=== PATIENT | female | born 1965 | race Caucasian/White ===

== ENCOUNTER 2016-11-25 17:50 | Emergency (ER) | payer OTHER ==
--- NOTE | 2016-11-25 19:31 | DIAGNOSTIC IMAGING REPORT ---
PROCEDURE: XR CHEST 1 VIEW INDICATION: CHEST PAIN TECHNIQUE: Portable AP view (1920 hours). COMPARISON: Compared to chest x-ray on 08/16/2011. FINDINGS: Lungs are clear. Heart and mediastinum are normal. Thorax is normal. IMPRESSION: 1. Negative chest.
--- NOTE | 2016-11-25 21:21 | ED NURSING NOTES ---
Clinical Report - Nurses [facility] [address] [place] [address] 11/25/2016 17:51 Patient: YOVANNY PARK TRIAGE Triage time 18:28. Acuity: LEVEL 3. Chief Complaint: CHEST PAIN. Alert. No acute distress. --18:37 Tiff Flores R.N. 18:28 11/25/16. BP: 110/75. HR: 71. RR: 18. O2 saturation: 98% on room air. Temp: 97.9 F (oral). Pain level now: 3/10. --18:37 Tiff Flores R.N. Weight: 63.5 kg stated. Height/Length: 64 inches Per Patient. BMI: 24. --18:35 Tiff Flores R.N. Medications Divalproex Sodium Oral. Imitrex Oral. SEROquel Oral. --18:32 Tiff Flores R.N. Medication/allergy information source: the patient. --18:37 Tiff Flores R.N. Allergies Codeine. Possible Vicodin.(vomiting) --18:32 Tiff Flores R.N. History Arrived by private vehicle. Historian: patient. Unaccompanied. Primary physician (Frandy). Describes the quality as aching and (intermittent). Relates location as in the central chest area. Notes pain level as 3/10 on arrival and 7/10 at maximum. Provoking / relieving factors: worsened by movement; relieved by rest. ( states if she thinks about the pain comes back). The patient has had difficulty breathing. No sweating episodes, nausea or vomiting. PAST MEDICAL HX: Last normal menstrual period- Oct 2016. SOCIAL HX: Smoker- current status unknown (no). Occasional alcohol use. No drug use. FALL RISK ASSESSMENT: Fall risk assessment completed. No fall risk identified. FUNCTIONAL ASSESSMENT: Functional assessment: no impairments noted. LEARNING NEEDS ASSESSMENT: The learning needs assessment revealed no barriers. --18:37 Mark, Tiff, R.N. 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 (324 mg). --18:39 Tiff Flores R.N. PROBLEMS: Cellulitis. Bronchitis. Pneumonia. Chronic Headache. Headache. Tension-Type Headache. Migraine Headache. Immunizations. LNMP - Last Normal Menstrual Period. --18:33 Tiff Flores R.N. ADDITIONAL SURGERIES: Appendectomy. Foot. --18:33 Tiff Flores R.N. Assessment GENERAL / NEURO / PSYCH: Alert. Oriented X 4. Appears in no acute distress. Patient appears calm and cooperative. RESPIRATORY: Respirations not labored. SKIN: Skin is warm and dry. --18:37 Tiff Flores R.N. Interventions ID and allergy band on patient. To treatment room. --18:37 Tiff Flores R.N. PHYSICAL ASSESSMENT 19:04 11/25/16. Ambulatory to room. GENERAL / NEURO / PSYCH: Alert. Oriented X 4. Appears in no acute distress. HEENT: Mucous membranes are pink. RESPIRATORY: Respirations not labored. Chest nontender. CVS: Pulses within normal limits. Capillary refill less than 2 seconds. GI / : Abdomen soft. EXTREMITIES: No lower extremity edema. SKIN: Skin is warm and dry. Normal skin turgor. Skin is non-tender. --19:04 Shefali Cope R.N. NURSING PROGRESS NOTES 18:57 EKG done in triage. --18:57 Tiff Flores R.N. EKG time: (185). EKG was performed by a tech and shown to the ED physician. --19:02 [facility] 19:05 11/25/16. The plan of care for this patient includes an assessment with efforts to address impairment of the cardiovascular system. This plan of care was discussed with the patient. cardiac monitor, pulse oximeter and NIBP monitor placed on patient; rn cardiac rehab- Lead II; monitor alarms on. Patient gowned. Two patient identifiers checked. Call light placed in reach. Side rails up x 1. Bed placed in lowest position. Brakes of bed on. --19:05 Shefali Cope R.N. 19:22 11/25/16. Portable chest x-ray performed and shown to the ED physician. --19:29 Shefali Cope R.N. 19:45 11/25/2016 Site #1 started via IV in the left wrist with an 20g angiocath, with aseptic technique and good blood return; one attempt. Blood drawn: rainbow set. Labeled in the presence of the patient and sent to the lab. Saline lock flushed with 10 mL saline. --19:49 Shefali Cope R.N. Oxygen administered at 2 liters (applied). --19:50 Shefali Cope R.N. 19:49 11/25/16. O2 saturation: 89%. --19:50 Shefali Cope R.N. 21:07 11/25/16. The patient is calm. RESPIRATORY: No respiratory distress. Breath sounds normal. CVS: Normal sinus rhythm noted. SKIN: Skin is warm and dry. Skin color within normal limits. Patient waiting for disposition. --21:07 Shefali Cope R.N. 21:07 11/25/16. BP: 110/70. HR: 72. RR: 18. O2 saturation: 100%. Pain level now 0/10. --21:07 Shefali Cope R.N. 21:19 11/25/16. ( Md in room to review findings). --21:19 Shefali Cope R.N. DISPOSITION / DISCHARGE 21:33 11/25/2016 Site #1 removed upon discharge. Catheter intact. Bandaid applied. --21:35 Shefali Cope R.N. 21:36 11/25/16. Condition at departure: improved and stable. The goals identified in the patient's plan of care were met. No learning barriers present. Reviewed medication(s). Reviewed referral to a primary care physician for followup. Patient verbalized understanding. Written instructions provided in [place] Islander. The patient was discharged home and unaccompanied at time of discharge. She left the Emergency Department ambulatory and via private vehicle. Patient driving. FALL RISK ASSESSMENT: Fall risk assessment completed. No fall risk identified. --21:36 Shefali Cope R.N. 21:06 11/25/16. BP: 110/70. HR: 72. RR: 18. O2 saturation: 100%. Pain level now 0/10. --21:36 Shefali Cope R.N. Departure time: 21:36 Nov 25 2016. --21:36 Shefali Cope R.N. Locked/Released at 11/25/2016 21:36 by Shefali Cope R.N.
--- NOTE | 2016-11-25 21:21 | ED ORDER SUMMARY ---
..... Patient: YOVANNY PARK OrderSheet [facility] VisitID: [id number] [place] [address] 51y, F Registration Date/Time: 11/25/2016 ORDER SHEET Weight: 63.5 kg (stated) Allergies: Codeine, Vicodin GENERAL ORDERS: Chest 1V Urgent (19:11/25/2016 Zion MARSHALL) (Ack 19:13 Kassidy ER Dolphin Trainer) (19:40 MCampbell) Fruit Farmer (Continuous) (:11/25/2016 Zion MARSHALL) (19:11 EInderbitzen R.N.) CBC w Diff Urgent (:11/25/2016 Zion MARSHALL) (Ack 19:13 Kassidy ER Dolphin Trainer) (20:19 EInderbitzen R.N.) CMP Urgent (:11/25/2016 Zion MARSHALL) (Ack 19:13 Kassidy ER Dolphin Trainer) (20:19 EInderbitzen R.N.) UA-Culture if indicated Urgent (:11/25/2016 Zion MARSHALL) (Ack 19:13 Kassidy ER Dolphin Trainer) (20:19 EInderbitzen R.N.) Urine Urgent (:11/25/2016 Zion MARSHALL) (Ack 19:13 Kassidy ER Dolphin Trainer) (20:19 EInderbitzen R.N.) D-Dimer Urgent (19:11/25/2016 Zion MARSHALL) (Ack 19:13 Kassidy ER Dolphin Trainer) (20:19 EInderbitzen R.N.) CPK Urgent (19:11/25/2016 Zion MARSHALL) (Ack 19:13 Kassidy ER Dolphin Trainer) (20:19 EInderbitzen R.N.) Troponin-I Urgent (:11/25/2016 Zion MARSHALL) (Ack 19:13 Kassidy ER Dolphin Trainer) (20:19 EInderbitzen R.N.) Oxygen (2 L/min) (NC) (19:00 11/25/2016 Zion MARSHALL) (19:11 EInderbitzen R.N.) Pulse oximeter (19:00 11/25/2016 Zion MARSHALL) (19:11 Parker LandrumN.) EKG - ER Stat (19:00 11/25/2016 Zion MARSHALL) (19:01 RKaruga) BNP Urgent (19:11/25/2016 Zion MARSHALL) (Ack 19:13 CHagerty ER Dolphin Trainer) (20:19 Parker Ortiz.N.) TSH Urgent (20:02 11/25/2016 Zion MARSHALL) (20:19 Parker R.N.) Valproic Acid (Depakene) Urgent (20:04 11/25/2016 Zion MARSHALL) (20:19 Parker Ortiz.N.) MEDICATION ORDERS: IV FLUIDS: IV Saline Lock (19:00 11/25/2016 Zion MARSHALL) (19:50 EIbrent R.N.) ORDER SHEET NOTES: [Electronically signed by Shefali Cope R.N. (21:36 11/25/2016)] [Electronically signed by Brant Nelson MD (03:36 11/30/2016)] [Electronically locked/signed by Shefali Cope R.N. (21:36 11/25/2016)]
--- NOTE | 2016-11-25 21:21 | ED NURSING NOTES ---
Clinical Report - Nurses [facility] [address] [place] [address] 11/25/2016 17:51 Patient: YOVANNY PARK TRIAGE Triage time 18:28. Acuity: LEVEL 3. Chief Complaint: CHEST PAIN. Alert. No acute distress. --18:37 Tiff Flores R.N. 18:28 11/25/16. BP: 110/75. HR: 71. RR: 18. O2 saturation: 98% on room air. Temp: 97.9 F (oral). Pain level now: 3/10. --18:37 Tiff Flores R.N. Weight: 63.5 kg stated. Height/Length: 64 inches Per Patient. BMI: 24. --18:35 Tiff Flores R.N. Medications Divalproex Sodium Oral. Imitrex Oral. SEROquel Oral. --18:32 Tiff Flores R.N. Medication/allergy information source: the patient. --18:37 Tiff Flores R.N. Allergies Codeine. Possible Vicodin.(vomiting) --18:32 Tiff Flores R.N. History Arrived by private vehicle. Historian: patient. Unaccompanied. Primary physician (Frandy). Describes the quality as aching and (intermittent). Relates location as in the central chest area. Notes pain level as 3/10 on arrival and 7/10 at maximum. Provoking / relieving factors: worsened by movement; relieved by rest. ( states if she thinks about the pain comes back). The patient has had difficulty breathing. No sweating episodes, nausea or vomiting. PAST MEDICAL HX: Last normal menstrual period- Oct 2016. SOCIAL HX: Smoker- current status unknown (no). Occasional alcohol use. No drug use. FALL RISK ASSESSMENT: Fall risk assessment completed. No fall risk identified. FUNCTIONAL ASSESSMENT: Functional assessment: no impairments noted. LEARNING NEEDS ASSESSMENT: The learning needs assessment revealed no barriers. --18:37 Mark, Tiff, R.N. 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 --18:39 Tiff Flores R.N. PROBLEMS: Cellulitis. Bronchitis. Pneumonia. Chronic Headache. Headache. Tension-Type Headache. Migraine Headache. Immunizations. LNMP - Last Normal Menstrual Period. --18:33 Tiff Flores R.N. ADDITIONAL SURGERIES: Appendectomy. Foot. --18:33 Tiff Flores R.N. Assessment GENERAL / NEURO / PSYCH: Alert. Oriented X 4. Appears in no acute distress. Patient appears calm and cooperative. RESPIRATORY: Respirations not labored. SKIN: Skin is warm and dry. --18:37 Tiff Flores R.N. Interventions ID and allergy band on patient. To treatment room. --18:37 Tiff Flores R.N. PHYSICAL ASSESSMENT 19:04 11/25/16. Ambulatory to room. GENERAL / NEURO / PSYCH: Alert. Oriented X 4. Appears in no acute distress. HEENT: Mucous membranes are pink. RESPIRATORY: Respirations not labored. Chest nontender. CVS: Pulses within normal limits. Capillary refill less than 2 seconds. GI / : Abdomen soft. EXTREMITIES: No lower extremity edema. SKIN: Skin is warm and dry. Normal skin turgor. Skin is non-tender. --19:04 Shefali Cope R.N. NURSING PROGRESS NOTES 18:57 EKG done in triage. --18:57 Tiff Flores R.N. EKG time: (185). EKG was performed by a tech and shown to the ED physician. --19:02 [facility] 19:05 11/25/16. The plan of care for this patient includes an assessment with efforts to address impairment of the cardiovascular system. This plan of care was discussed with the patient. surveillance system monitor, pulse oximeter and NIBP monitor placed on patient; security monitor- Lead II; monitor alarms on. Patient gowned. Two patient identifiers checked. Call light placed in reach. Side rails up x 1. Bed placed in lowest position. Brakes of bed on. --19:05 Shefali Cope R.N. 19:22 11/25/16. Portable chest x-ray performed and shown to the ED physician. --19:29 Shefali Cope R.N. 19:45 11/25/2016 Site #1 started via IV in the left wrist with an 20g angiocath, with aseptic technique and good blood return; one attempt. Blood drawn: rainbow set. Labeled in the presence of the patient and sent to the lab. Saline lock flushed with 10 mL saline. --19:49 Shefali Cope R.N. Oxygen administered at 2 liters (applied). --19:50 Shefali Cope R.N. 19:49 11/25/16. O2 saturation: 89%. --19:50 Shefali Cope R.N. 21:07 11/25/16. The patient is calm. RESPIRATORY: No respiratory distress. Breath sounds normal. CVS: Normal sinus rhythm noted. SKIN: Skin is warm and dry. Skin color within normal limits. Patient waiting for disposition. --21:07 Shefali Cope R.N. 21:07 11/25/16. BP: 110/70. HR: 72. RR: 18. O2 saturation: 100%. Pain level now 0/10. --21:07 Shefali Cope R.N. 21:19 11/25/16. ( Md in room to review findings). --21:19 Shefali Cope R.N. DISPOSITION / DISCHARGE 21:33 11/25/2016 Site #1 removed upon discharge. Catheter intact. Bandaid applied. --21:35 Shefali Cope R.N. 21:36 11/25/16. Condition at departure: improved and stable. The goals identified in the patient's plan of care were met. No learning barriers present. Reviewed medication(s). Reviewed referral to a primary care physician for followup. Patient verbalized understanding. Written instructions provided in Colombian. The patient was discharged home and unaccompanied at time of discharge. She left the Emergency Department ambulatory and via private vehicle. Patient driving. FALL RISK ASSESSMENT: Fall risk assessment completed. No fall risk identified. --21:36 Shefali Cope R.N. 21:06 11/25/16. BP: 110/70. HR: 72. RR: 18. O2 saturation: 100%. Pain level now 0/10. --21:36 Shefali Cope R.N. Departure time: 21:36 Nov 25 2016. --21:36 Shefali Cope R.N. Locked/Released at 11/25/2016 21:36 by Shefali Cope R.N.
--- NOTE | 2016-11-25 21:21 | ED CLINICAL REPORT ---
Clinical Report - Physicians/Mid Levels [facility] [address] [place] [address] 11/25/2016 17:51 Patient: YOVANNY PARK Time Seen: 19:02. Arrived- By private vehicle. Historian- patient. HISTORY OF PRESENT ILLNESS Chief Complaint: CHEST PAIN. At its maximum, severity described as 7 / 10. When seen in the E.D., severity described as 2 / 10. Modifying factors. Not worsened by anything. It is described as tightness and it is described as located in the central chest area. No radiation. This started yesterday and is still present. It was abrupt in onset and has been intermittent and waxing/waning. Onset during light activity. No nausea, vomiting, difficulty breathing or diaphoresis. Similar symptoms previously: Once. Diagnosis: anxiety. REVIEW OF SYSTEMS No cough, pedal edema, calf pain, chills or fever. No sweats, abdominal pain, constipation, diarrhea or nausea. No vomiting or urinary problems. All systems otherwise negative, except as recorded above. PAST HISTORY PCP - Dr. Alicia Wise. Problems: Cellulitis. Bronchitis. Pneumonia. Chronic Headache. Headache. Tension-Type Headache. Migraine Headache. Additional Surgeries: Appendectomy. Foot. Medications: Divalproex Sodium Oral. Imitrex Oral. SEROquel Oral. Allergies: Codeine. Possible Vicodin.(vomiting). SOCIAL HISTORY Never smoker. Occasional alcohol use. No drug use. Is a local resident. FAMILY HISTORY Stroke in grandparent. ADDITIONAL NOTES The nursing notes have been reviewed. PHYSICAL EXAM Vital Signs: 11/25/2016 18:28 BP: 110/75. HR: 71. RR: 18. O2 saturation: 98%. Temp: 97.9 F. Pain level now: 310. Have been reviewed. Appearance: Alert. Anxious. Eyes: Pupils equal, round and reactive to light. ENT: Pharynx normal. Neck: Normal inspection. Neck supple. CVS: Normal heart rate and rhythm. Heart sounds normal. Respiratory: Chest pain reproducible with palpation of the costal cartilage, costochondral junction and sternum. Abdomen: Soft and nontender. Bowel sounds normal. No organomegaly. No mass. Back: Normal external inspection. Skin: Skin warm and dry. Normal skin color. No rash. Normal skin turgor. Extremities: Extremities exhibit normal ROM. No calf tenderness. No lower extremity edema. Neuro: No motor deficit. No sensory deficit. LABS, X-RAYS, AND EKG EKG: Rate: 66. Decreased QRS voltage. Prior EKG unavailable. The study has been independently viewed by me. Chest X-ray: Normal Chest X-Ray. Laboratory Tests: UA-Culture if indicated: (VANDANA: 11/25/2016 19:40) ( [facility]17) Final results Test Result Flag Units (Reference) URINE COLOR YELLOW URINE APPEARANCE CLEAR URINE GLUCOSE NEGATIVE (NEGATIVE) URINE BILIRUBIN NEGATIVE (NEGATIVE) URINE KETONE NEGATIVE (NEGATIVE) URINE SPECIFIC GRAVITY 1.015 (1.010-1.030) URINE PH 7.0 (5.0-8.0) URINE PROTEIN NEGATIVE (NEGATIVE) URINE UROBILINOGEN 0.2 EU/dL (0.2-1.0) URINE NITRITE NEGATIVE (NEGATIVE) URINE BLOOD NEGATIVE (NEGATIVE) URINE LEUK ESTERASE NEGATIVE (NEGATIVE) URINE RBC NONE SEEN rbc/hpf (0-1) URINE WBC 0-1 wbc/hpf (0-1) URINE EPITHELIAL CELLS 1-3 EPI/hpf (0-5) URINE BACTERIA TRACE (<1+) (NONE SEEN) URINE COMMENT CULT NOT INDICATED 1+ AMORPHOUSURINE CULTURES ARE SET-UP BASED ON THE FOLLOWING CRITERIA:POSITIVE NITRITEPOSITIVE LEUKOCYTE ESTERASEGREATER THAN 10 WHITE BLOOD CELLSMODERATE (2+) OR GREATER BACTERIA Urine: (VANDANA: 11/25/2016 19:40) ( [facility] 11/25/2016 20:03) Final results Test Result Flag Units (Reference) URINE NEGATIVE CBC w Diff: (VANDANA: 11/25/2016 19:40) ( [facility] 11/25/2016 20:00) Final results Test Result Flag Units (Reference) WHITE BLOOD COUNT 7.6 K/uL (4.5-11.5) RED BLOOD COUNT 4.39 M/uL (4.00-5.20) HEMOGLOBIN 14.0 gm/dL (12.0-16.0) HEMATOCRIT 41.9 % (36.0-46.0) MEAN CELL VOLUME 95 fL (80-100) MEAN CORPUSCULAR HGB 32 pg (26-34) MEAN CORPUSCULAR HGB CONC 34 g/dL (31-37) RED CELL DISTRIBUTION WIDTH 11.9 % (11.6-14.8) PLATELET COUNT 215 K/uL (150-400) NEUTROPHIL % 56.9 % (50-75) LYMPH % 33.7 % (25-40) MONO % 7.6 % (3-14) EOSINOPHIL % 1.4 % (0-4) BASOPHIL % 0.4 % (0-2) [id number]: (VANDANA: 11/25/2016 19:40) ( [facility] 11/25/2016 20:07) Final results Test Result Flag Units (Reference) D-DIMER QUANTITATIVE < 0.27 L ug/mLFEU (0.27-0.52) The primary value of this quantitative assay relates toits negative predictive value (i.e. exclusion) of pulmonaryembolism/deep vein thrombosis/DIC.Elevated levels of d-dimer may also occur with:, age, cancer, inflammation, liver disease,post-op, infection, hematoma, coronary disease, peripheralarteriopathy, bleeding disorders and thrombolytic treatment.Results should be correlated with other clinical andradiological data.Testing Methodology: Latex Immunoassay Valproic Acid (Depakene): (VANDANA: 11/25/2016 19:50) ( [facility] 11/25/2016 20:46) Final results Test Result Flag Units (Reference) VALPROIC ACID (DEPAKENE) 38.7 L ug/mL (50.0-150.0) TSH: (VANDANA: 11/25/2016 19:48) ( [facility] 11/25/2016 20:26) Final results Test Result Flag Units (Reference) THYROID STIMULATING HORMONE 2.657 uIU/mL (0.34-3.74) BNP: (VANDANA: 11/25/2016 19:40) ( [facility] 11/25/2016 20:22) Final results Test Result Flag Units (Reference) B-TYPE NATRIURETIC PEPTIDE 21.0 pg/ml (5-100) CMP: (VANDANA: 11/25/2016 19:40) ( [facility] 11/25/2016 20:15) Final results Test Result Flag Units (Reference) GLUCOSE 79 mg/dL (70-110) BUN 15 mg/dL (7-18) CREATININE 0.7 mg/dL (0.6-1.3) Estimated GFR >60 mL/min Estimated GFR- >60 mL/min Note: Persistent reduction over 3 months in eGFR<60 mL/min/1.73 m2 defines CKD. Patients with eGFR values>=60 mL/min/1.73 m2 may also have CKD if evidence ofpersistent proteinuria. Additional information may be foundat www.kidney.org. SODIUM 138 mmol/L (136-145) POTASSIUM 3.9 mmol/L (3.5-5.1) CHLORIDE 103 mmol/L (98-107) CARBON DIOXIDE 28 mmol/L (21-32) CALCIUM 8.2 L mg/dL (8.5-10.1) TOTAL PROTEIN 6.9 g/dL (6.4-8.2) ALBUMIN 3.7 g/dL (3.3-5.0) BILIRUBIN, TOTAL 0.1 mg/dL (0.0-1.0) ALKALINE PHOSPHATASE 50 U/L (46-116) AST (SGOT) 13 L U/L (15-37) ALT (SGPT) 22 U/L (12-78) CPK 80 U/L (24-260) TROPONIN I <0.05 ng/mL (0.00-1.5) TROPONIN REFERENCE RANGE:<0.1 NEGATIVE0.1-1.5 INDETERMINANT>1.5 POSITIVE . PROGRESS AND PROCEDURES Course of Care: Patient is stable. Patient/family counseled. Old medical records reviewed. Disposition: Discharged. Condition: stable. CLINICAL IMPRESSION Costochondritis Anxiety reaction. INSTRUCTIONS Avoid stimulants (such as cigarettes, coffee, cold medicines, sinus medicines, street drugs). (Talk with her doctor about whether or not she would benefit from adjustments to your divalproic acid medication as discussed). Warnings: Further evaluation is necessary. GENERAL WARNINGS: Return or contact your physician immediately if your condition worsens or changes unexpectedly, if not improving as expected, or if other problems arise. Your Current Medications: CONTINUE TAKING THE FOLLOWING MEDICATIONS: Divalproex Sodium Oral. Imitrex Oral. SEROquel Oral. Follow-up: Follow up with your doctor Monday in three days. Call for an appointment. Understanding of the discharge instructions verbalized by patient. (Electronically signed by Brant Nelson MD 11/30/2016 3:36)
--- NOTE | 2016-11-25 21:21 | ED ORDER SUMMARY ---
..... Patient: YOVANNY PARK OrderSheet [facility] VisitID: [id number] [place] [address] 51y, F Registration Date/Time: 11/25/2016 ORDER SHEET Weight: 63.5 kg (stated) Allergies: Codeine, Vicodin GENERAL ORDERS: Chest 1V Urgent (19:11/25/2016 Zion MARSHALL) (Ack 19:13 Kassidy ER Customs Collector) (19:40 MCampbell) Machinist Brake (Continuous) (:11/25/2016 Zion MARSHALL) (19:11 EInderbitzen R.N.) CBC w Diff Urgent (:11/25/2016 Zion MARSHALL) (Ack 19:13 Kassidy ER Customs Collector) (20:19 EInderbitzen R.N.) CMP Urgent (:11/25/2016 Zion MARSHALL) (Ack 19:13 Kassidy ER Customs Collector) (20:19 EInderbitzen R.N.) UA-Culture if indicated Urgent (:11/25/2016 Zion MARSHALL) (Ack 19:13 Kassidy ER Customs Collector) (20:19 EInderbitzen R.N.) Urine Urgent (:11/25/2016 Zion MARSHALL) (Ack 19:13 Kassidy ER Customs Collector) (20:19 EInderbitzen R.N.) D-Dimer Urgent (19:11/25/2016 Zion MARSHALL) (Ack 19:13 Kassidy ER Customs Collector) (20:19 EInderbitzen R.N.) CPK Urgent (19:11/25/2016 Zion MARSHALL) (Ack 19:13 Kassidy ER Customs Collector) (20:19 EInderbitzen R.N.) Troponin-I Urgent (:11/25/2016 Zion MARSHALL) (Ack 19:13 Kassidy ER Customs Collector) (20:19 EInderbitzen R.N.) Oxygen (2 L/min) (NC) (19:00 11/25/2016 Zion MARSHALL) (19:11 EInderbitzen R.N.) Pulse oximeter (19:00 11/25/2016 Zion MARSHALL) (19:11 Parker LandrumN.) EKG - ER Stat (19:00 11/25/2016 Zion MARSHALL) (19:01 RKaruga) BNP Urgent (19:11/25/2016 Zion MARSHALL) (Ack 19:13 CHagerty ER Customs Collector) (20:19 Parker Ortiz.N.) TSH Urgent (20:02 11/25/2016 Zion MARSHALL) (20:19 Parker R.N.) Valproic Acid (Depakene) Urgent (20:04 11/25/2016 Zion MARSHALL) (20:19 Parker Ortiz.N.) MEDICATION ORDERS: IV FLUIDS: IV Saline Lock (19:00 11/25/2016 Zion MARSHALL) (19:50 EIbrent R.N.) ORDER SHEET NOTES: [Electronically signed by Shefali Cope R.N. (21:36 11/25/2016)] [Electronically signed by Brant Nelson MD (03:36 11/30/2016)] [Electronically locked/signed by Shefali Cope R.N. (21:36 11/25/2016)]
--- NOTE | 2016-11-30 03:36 | ED MED RECONCILIATION SUMMARY ---
Patient: YOVANNY PARK Medication Reconciliation Report [facility] VisitID: [id number] [address] [place] [address] 51y, F Registration Date/Time: 11/25/2016 Weight: 63.5 kg Height/Length: 64 in. BMI: 24.0 ALLERGIES: Codeine, Vicodin The patient's Home Medications are listed below: CONTINUE TAKING THE FOLLOWING MEDICATIONS: Divalproex Sodium Oral Imitrex Oral SEROquel Oral The source(s) of the original Home Medication information: patient The following Medications were given to the patient in the Emergency Department: None. The following Medications were prescribed to the patient: None.
--- NOTE | 2016-11-30 03:36 | ED MAR SUMMARY ---
..... Medication Administration Record [facility] [address] [place], [place] [id number] Patient: YOVANNY PARK Visit ID: [id number] 51y, F Weight: 63.5 kg Height/Length: 64 in BMI: 24 ALLERGIES: Codeine, Vicodin
--- NOTE | 2016-11-30 03:36 | ED DISCHARGE INSTRUCTIONS ---
Patient: YOVANNY PARK General Instructions [facility] VisitID: [id number] [place] [address] 51y, F Registration Date/Time: 11/25/2016 Costochondritis Anxiety reaction. INSTRUCTIONS Avoid stimulants (such as cigarettes, coffee, cold medicines, sinus medicines, street drugs). (Talk with her doctor about whether or not she would benefit from adjustments to your divalproic acid medication as discussed). Warnings: Further evaluation is necessary. GENERAL WARNINGS: Return or contact your physician immediately if your condition worsens or changes unexpectedly, if not improving as expected, or if other problems arise. Your Current Medications: CONTINUE TAKING THE FOLLOWING MEDICATIONS: Divalproex Sodium Oral. Imitrex Oral. SEROquel Oral. Follow-up: Follow up with your doctor Monday in three days. Call for an appointment. Understanding of the discharge instructions verbalized by patient. ADDITIONAL INFORMATION Chest Wall Pain: Costochondritis The chest pain that you have had today is caused by Costochondritis. This condition is due to an inflammation of the cartilage joining the ribs to the breastbone. It is not caused by heart or lung problems. Although the exact cause for costochondritis is not known, it often occurs during times of emotional stress. It can be painful, but it is not dangerous. It usually disappears within one to two weeks, but may recur. Rarely, a more serious condition may cause symptoms similar to costochondritis; therefore, watch for the warning signs listed below. Home Care: If you feel that emotional stress is a cause of your condition, try to identify sources of that stress. It may not be obvious! Learn ways to deal with the stress in your life such as regular exercise, muscle relaxation, meditation, or simply taking time out for yourself. For more information about this, consult your doctor or go to a local bookstore and review books and tapes available on the subject of stress reduction. You may use acetaminophen (Tylenol) or ibuprofen (Motrin, Advil) to control pain, unless another pain medicine was prescribed. [ NOTE: If you have liver disease or ever had a stomach ulcer, talk with your doctor before using these medicines.] The use of heat (hot wet compress or heating pad) with or without local analgesic creams (Deep Heat Rub, Mingo Gan) will be helpful to reduce pain. Follow Up with your doctor as directed or sooner if you do not start to improve within the next two days. Get Prompt Medical Attention if any of the following occur: A change in the type of pain: if it feels different, becomes more severe, lasts longer, or spreads into your shoulder, arm, neck, jaw or back Shortness of breath or increased pain with breathing Weakness, dizziness, or fainting Cough with dark colored sputum (phlegm) or blood Abdominal pain Dark red or black stools Fever of 100.4F (38C) or higher, or as directed by your healthcare provider Stress Reaction Anxiety is the feeling we all get when we think something bad might happen. It is a normal response to stress and usually causes only a mild reaction. When anxiety becomes more severe, emotions may interfere with daily life. In some cases, you may not even be aware of what it is youre anxious about! During an anxiety reaction, you may feel like you are helpless, nervous, depressed or irritable. Your body may show signs of anxiety in many ways. You may experience dry mouth, shakiness, dizziness, weakness, trouble breathing, chest pressure, headache, nausea, diarrhea, tiredness, inability to sleep or sexual problems. Home Care: 1) Try to locate the sources of stress in your life. They may not be obvious! These may include: -- Daily hassles of life which pile up (traffic jams, missed appointments, car troubles, etc.) -- Major life changes, both good (new baby, job promotion) and bad (loss of job, loss of loved one) -- Overload: feeling that you have too many responsibilities and can't take care of all of them at once -- Feeling helpless, feeling that your problems are beyond what youre able to solve 2) Notice how your body reacts to stress. Learn to listen to your body signals. This will help you take action before the stress becomes severe. 3) When you can, do something about the source of your stress. (Avoid hassles, limit the amount of change that happens in your life at one time and take a break when you feel overloaded). 4) Unfortunately, many stressful situations cannot be avoided. It is necessary to learn HOW TO MANAGE STRESS better. There are many proven methods that will reduce your anxiety. These include simple things like exercise, good nutrition and adequate rest. Also, there are certain techniques that are helpful: relaxation and breathing exercises, visualization, biofeedback and meditation. For more information about this, consult your doctor or go to a local bookstore and review the many books and tapes available on this subject. Follow Up If you feel that your anxiety is not responding to self-help measures, contact your doctor or make an appointment with a counselor. Get Prompt Medical Attention if any of the following occur: -- Your symptoms get worse -- Chest pain or trouble breathing -- Severe headache not relieved by rest and mild pain reliever -- Rapid or irregular heartbeat, fainting You have been given the following additional information: Chest Wall Pain, Costochondritis Anxiety Reaction (Electronically signed by Brant Nelson MD 11/30/2016 3:36)
--- NOTE | 2016-11-30 03:36 | ED MED RECONCILIATION SUMMARY ---
Patient: YOVANNY PARK Medication Reconciliation Report [facility] VisitID: [id number] [address] [place] [address] 51y, F Registration Date/Time: 11/25/2016 Weight: 63.5 kg Height/Length: 64 in. BMI: 24.0 ALLERGIES: Codeine, Vicodin The patient's Home Medications are listed below: CONTINUE TAKING THE FOLLOWING MEDICATIONS: Divalproex Sodium Oral Imitrex Oral SEROquel Oral The source(s) of the original Home Medication information: patient The following Medications were given to the patient in the Emergency Department: None. The following Medications were prescribed to the patient: None.
--- NOTE | 2016-11-30 03:36 | ED MAR SUMMARY ---
..... Medication Administration Record [facility] [address] [place], [place] [id number] Patient: YOVANNY PARK Visit ID: [id number] 51y, F Weight: 63.5 kg Height/Length: 64 in BMI: 24 ALLERGIES: Codeine, Vicodin
== END 2016-11-25 21:36 | disposition home or self-care (01) ==
LOC: ED SRH 17:50
DX: M94.0 Chondrocostal junction syndrome [Tietze] (principal); F41.1 Generalized anxiety disorder; J18.9 Pneumonia, unspecified organism; Z79.899 Other long term (current) drug therapy; Z88.5 Allergy status to narcotic agent
CPT/HCPCS: 90004; 90100; 90616; 91285; 91320; 91556; 92610; 93070; 93140; 95059